=== PATIENT | male | born 2005 | race Hispanic/Latino ===

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

== ENCOUNTER 2025-06-18 11:45 | Inpatient (IN) | payer OTHER, BC ==
[2025-06-18 12:36] LABS: #Basophils 0.07 10x3/uL (0.0-0.2); #Eosinophils 0.07 10x3/uL (0.0-0.7); #Monocytes 1.13 10x3/uL (0.11-0.59); #Neutrophils 20.01 10x3/uL (1.40-6.50); %Basophils 0.3 % (0.0-1.0); %Eosinophils 0.3 % (0.0-10.0); %Lymphocytes 9.7 % (28.0-48.0); %Monocytes 4.7 % (0.0-4.0); %Neutrophils 84.0 % (31.0-61.0); Hematocrit 44.4 % (42.0-52.0); Hemoglobin 15.2 g/dL (14.0-18.0); Mean Corpuscular Hemoglobin 30.0 pg (25.0-35.0); Mean Corpuscular Volume 87.6 fL (78.0-98.0); Platelet Count 287 10x3/uL (130-400); Red Blood Cell (RBC) Count 5.07 mill/uL (4.00-5.20); White Blood Cell (WBC) Count 23.83 10x3/uL (4.8-10.8)
[2025-06-18 12:46] LABS: ALT (SGPT) 13 U/L (Less than 45); AST (SGOT) 22 U/L (11-34); Albumin 3.8 g/dL (3.1-4.5); Alkaline Phosphatase 86 U/L (50-130); Anion Gap 17 mmol/L (10-20); BUN (Urea Nitrogen) 11 mg/dL (8.4-21.0); Bilirubin, Total 0.6 mg/dL (0.3-1.2); Calc. Creatinine Clearance 0 mL/min (70-130); Calcium 9.8 mg/dL (7.8-10.44); Carbon Dioxide 24 mmol/L (22-29); Chloride 103 mmol/L (98-107); Globulin 4.7 g/dL (2.4-3.5); Glucose 98 mg/dL (70-105); Potassium 3.7 mmol/L (3.5-5.1); Sodium 140 mmol/L (136-145)
[2025-06-18 12:57] LABS: INR-International Normal Ratio 1.1; Prothrombin Time 14.6 sec (12.0-14.7)
[2025-06-18 12:58] LABS: PTT 39.2 sec (22.9-36.1)
[2025-06-18] MEDS ORDERED: Cefepime 2 GM VIAL ONE (13:19)
[2025-06-18] MEDS ORDERED: VANCOMYCIN 2 GRAM/400 ML BAG ONE (14:06)
[2025-06-18] MEDS ORDERED: diphenhydrAMINE 50 MG/ML VIAL ONE (15:22)
[2025-06-18 17:53] VITALS: BMI 26.9
[2025-06-19] MEDS ORDERED: Vancomycin 1 GM in Premix 1 BAG IVPB SCH (07:45)
[2025-06-19 07:58] LABS: #Basophils 0.04 10x3/uL (0.0-0.2); #Eosinophils 0.23 10x3/uL (0.0-0.7); #Monocytes 0.73 10x3/uL (0.11-0.59); #Neutrophils 10.33 10x3/uL (1.40-6.50); %Basophils 0.3 % (0.0-1.0); %Eosinophils 1.6 % (0.0-10.0); %Lymphocytes 20.2 % (28.0-48.0); %Monocytes 5.1 % (0.0-4.0); %Neutrophils 71.8 % (31.0-61.0); Hematocrit 40.0 % (42.0-52.0); Hemoglobin 13.2 g/dL (14.0-18.0); Mean Corpuscular Hemoglobin 29.9 pg (25.0-35.0); Mean Corpuscular Volume 90.7 fL (78.0-98.0); Platelet Count 267 10x3/uL (130-400); Red Blood Cell (RBC) Count 4.41 mill/uL (4.00-5.20); White Blood Cell (WBC) Count 14.38 10x3/uL (4.8-10.8)
[2025-06-19 08:19] LABS: Anion Gap 12 mmol/L (10-20); BUN (Urea Nitrogen) 11 mg/dL (8.4-21.0); Calc. Creatinine Clearance 108 mL/min (70-130); Calcium 8.9 mg/dL (7.8-10.44); Carbon Dioxide 23 mmol/L (22-29); Chloride 110 mmol/L (98-107); Glucose 102 mg/dL (70-105); Potassium 3.7 mmol/L (3.5-5.1); Sodium 141 mmol/L (136-145)
[2025-06-19] MEDS: Vancomycin 1 GM in Premix 1 BAG IVPB SCH (08:31)
[2025-06-19] MEDS ORDERED: Pen G 2.5 MILL.UNITS/50 ML BAG IVPB SCH (09:00)
[2025-06-19] MEDS: Penicillin G Potassium 2.5 MILL.UNITS in Sodium Chloride 0.9% 50 ML IVPB SCH (09:47)
[2025-06-19] MEDS: Ketorolac Tromethamine 30 MG (1 mL) VIAL IVP PRN (11:02)
[2025-06-19] MEDS ORDERED: Bacitracin Zinc Ointment 30 gm TUBE ONE (14:51)
[2025-06-19] MEDS ORDERED: Famotidine/PF 20 mg/2ml Vial ONE (15:12)
[2025-06-19] MEDS ORDERED: Lidocaine 1% PF 5 ML VIAL ONE (15:25)
[2025-06-19] MEDS ORDERED: Glycopyrrolate 0.2 MG/ML 5 ML SYRINGE ONE (15:28)
[2025-06-19] MEDS ORDERED: PHENYLEPHRINE-NS 100 MCG/ML 10 ML SYRINGE ONE (15:43)
[2025-06-19] MEDS ORDERED: PROPOFOL 200 MG/20 ML VIAL ONE (15:43)
[2025-06-19] MEDS ORDERED: Ondansetron PF 4 MG/2 ML Vial ONE (15:57)
[2025-06-19] MEDS ORDERED: Ondansetron PF 4 MG/2 ML Vial IVP PRN (16:42)
[2025-06-19] MEDS ORDERED: Acetaminophen/Codeine 30-300mg Tablet PO PRN (16:42)
[2025-06-19] MEDS ORDERED: Acetaminophen 325 MG TAB PO PRN (16:42)
[2025-06-19] MEDS ORDERED: TETANUS, DIPHTHERIA TOX,ADULT (TDVAX) 0.5 ML VIAL IM ONE (16:42)
[2025-06-19] MEDS ORDERED: Bisacodyl 10 MG SUPP PR PRN (16:42)
[2025-06-19] MEDS ORDERED: Meperidine HCl/PF 25 MG (1 mL) VIAL IM PRN (16:44)
[2025-06-19] MEDS ORDERED: Communication Order-Pharmacy FS SCH (16:45)
[2025-06-19] MEDS: Ketorolac Tromethamine 30 MG (1 mL) VIAL IVP SCH (17:28)
[2025-06-19] MEDS: Aspirin 81 mg Enteric Coated Tablet PO SCH (21:21)
[2025-06-19] MEDS: Gentamicin Sulfate 80 MG in Premix 1 BAG IVPB SCH (21:54)
[2025-06-20] MEDS: Vancomycin 1.25 GM / NS 250 ML VIAL-2-BAG IVPB SCH ×2 (01:00→04:26)
[2025-06-20 07:44] LABS: #Basophils 0.04 10x3/uL (0.0-0.2); #Eosinophils Less than 0.03 10x3/uL (0.0-0.7); #Monocytes 0.59 10x3/uL (0.11-0.59); #Neutrophils 12.25 10x3/uL (1.40-6.50); %Basophils 0.3 % (0.0-1.0); %Eosinophils 0.0 % (0.0-10.0); %Lymphocytes 11.3 % (28.0-48.0); %Monocytes 4.0 % (0.0-4.0); %Neutrophils 83.0 % (31.0-61.0); Hematocrit 40.1 % (42.0-52.0); Hemoglobin 13.4 g/dL (14.0-18.0); Mean Corpuscular Hemoglobin 30.1 pg (25.0-35.0); Mean Corpuscular Volume 90.1 fL (78.0-98.0); Platelet Count 316 10x3/uL (130-400); Red Blood Cell (RBC) Count 4.45 mill/uL (4.00-5.20); White Blood Cell (WBC) Count 14.76 10x3/uL (4.8-10.8)
[2025-06-20 08:00] LABS: Vancomycin, Random 30.1 ug/mL (See Comment)
[2025-06-20 13:41] LABS: Gentamicin, Trough 1.0 ug/mL (See Comment)
[2025-06-20] MEDS ORDERED: FLU (Fluarix Triv) 25-26 (6MOS UP)/PF 45 MCG/0.5 ML Syringe IM ONE (19:00)
[2025-06-20] MEDS: HYDROcodone/Acetaminophen 5/325 mg Tablet PO PRN (20:14)
[2025-06-21 05:12] LABS: #Basophils 0.07 10x3/uL (0.0-0.2); #Eosinophils 0.21 10x3/uL (0.0-0.7); #Monocytes 0.55 10x3/uL (0.11-0.59); #Neutrophils 6.05 10x3/uL (1.40-6.50); %Basophils 0.6 % (0.0-1.0); %Eosinophils 1.9 % (0.0-10.0); %Lymphocytes 34.9 % (28.0-48.0); %Monocytes 5.1 % (0.0-4.0); %Neutrophils 55.6 % (31.0-61.0); Hematocrit 38.2 % (42.0-52.0); Hemoglobin 12.7 g/dL (14.0-18.0); Mean Corpuscular Hemoglobin 30.2 pg (25.0-35.0); Mean Corpuscular Volume 90.7 fL (78.0-98.0); Platelet Count 313 10x3/uL (130-400); Red Blood Cell (RBC) Count 4.21 mill/uL (4.00-5.20); White Blood Cell (WBC) Count 10.89 10x3/uL (4.8-10.8)
[2025-06-21 06:08] LABS: Platelet Adequacy Comment Platelets Normal; RBC Morphology Within Normal Limits; Smudge Cells 13.0 %
[2025-06-21 12:16] VITALS: BP 125/77
[2025-06-21 16:50] VITALS: TEMP 97.7
== END 2025-06-21 17:30 | disposition home or self-care (01) | DRG 983 ==
LOC: ERS 11:45 → ERHOLD 14:30 → SURG B 17:15
PROVIDERS: ADMIT Orthopaedic Surgery Hand Surgery; ATTEND Orthopaedic Surgery Hand Surgery
PROC: 0LB70ZZ Excision of Right Hand Tendon, Open Approach (ICD-10-PCS; principal; 2025-06-19)
PROC: 3E03329 Introduction of Other Anti-infective into Peripheral Vein, Percutaneous Approach (ICD-10-PCS; 2025-06-19)
DX: L03.113 Cellulitis of right upper limb (principal)
CPT/HCPCS: 36415; 76881; 80048; 80053; 80170; 80202; 83605; 84484; 85025; 85610; 85730; 87040; 87070; 87205; 93005; 96365; 96366; 96367; 96375; J0692; J1100; J1200; J1308; J1580; J1885; J2250; J2405; J2540; J2704; J3010; J3372; J3373; J3375; J7050

== ENCOUNTER 2025-06-25 11:13 | Day surgery (SDC) | payer BC, OTHER ==
[2025-06-24 15:33] VITALS: BMI 26.9
[2025-06-25] MEDS ORDERED: Lidocaine 1% PF 5 ML VIAL ONE (11:42)
[2025-06-25] MEDS ORDERED: fentaNYL PF 100 MCG/2 ML SYRINGE ONE (11:42)
[2025-06-25] MEDS ORDERED: Ondansetron PF 4 MG/2 ML Vial ONE (11:42)
[2025-06-25 13:07] LABS: #Basophils 0.04 10x3/uL (0.0-0.2); #Eosinophils 0.15 10x3/uL (0.0-0.7); #Monocytes 0.38 10x3/uL (0.11-0.59); #Neutrophils 4.36 10x3/uL (1.40-6.50); %Basophils 0.5 % (0.0-1.0); %Eosinophils 2.1 % (0.0-10.0); %Lymphocytes 29.7 % (28.0-48.0); %Monocytes 5.2 % (0.0-4.0); %Neutrophils 59.9 % (31.0-61.0); Hematocrit 43.2 % (42.0-52.0); Hemoglobin 14.6 g/dL (14.0-18.0); Mean Corpuscular Hemoglobin 30.1 pg (25.0-35.0); Mean Corpuscular Volume 89.1 fL (78.0-98.0); Platelet Count 439 10x3/uL (130-400); Red Blood Cell (RBC) Count 4.85 mill/uL (4.00-5.20); White Blood Cell (WBC) Count 7.28 10x3/uL (4.8-10.8)
[2025-06-25] MEDS ORDERED: PROPOFOL 200 MG/20 ML VIAL ONE (13:35)
[2025-06-25] MEDS ORDERED: PHENYLEPHRINE-NS 100 MCG/ML 10 ML SYRINGE ONE (13:35)
[2025-06-25] MEDS ORDERED: Bacitracin Zinc Ointment 30 gm TUBE ONE (14:02)
[2025-06-25] MEDS ORDERED: Bupivacaine 0.25% HCL 30 ML VIAL ONE (14:03)
== END 2025-06-25 16:08 | disposition home or self-care (01) ==
LOC: SDC 11:13
PROVIDERS: ATTEND Orthopaedic Surgery Hand Surgery
PROC: 0JDJ0ZZ Extraction of Right Hand Subcutaneous Tissue and Fascia, Open Approach (ICD-10-PCS; principal; 2025-06-25)
DX: L02.511 Cutaneous abscess of right hand (principal); M65.949 Unspecified synovitis and tenosynovitis, unspecified hand
CPT/HCPCS: 85025; J0665; J1100; J2405; J2704